=== PATIENT | female | born 1995 | race Caucasian/White ===

== ENCOUNTER 2019-06-05 16:09 | Emergency (ER) | payer OTHER ==
[~2019-06-05] VITALS: Ht 152.4 cm; Wt 67.6 kg
--- NOTE | 2019-06-05 16:12 | NUR ---
bernadette, from home, came in due to hypotension, had headache and took 1 tab of grandmother amlodipine, denies SI/HI, BP 75/38 on scene, pt awake, alert, -sob, nad noted, vss, pending md hager
[2019-06-05 16:27] LABS: BASOPHILS % (AUTO) 0.3 % (0.0-2.0); EOSINOPHILS % (AUTO) 1.5 % (0.0-6.0); HEMATOCRIT 42 % (33-45); LYMPHOCYTES # (AUTO) 1.5 /CMM (0.8-4.8); LYMPHOCYTES % (AUTO) 12.8 % (20.0-44.0); MEAN CORPUSCULAR HGB CONC 33 g/dl (31.0-36.0); MEAN CORPUSCULAR VOLUME 91 fL (82-100); MONOCYTES # (AUTO) 0.8 /CMM (0.1-1.30); MONOCYTES % (AUTO) 6.9 % (2.0-12.0); NEUTROPHILS # (AUTO) 9.3 /CMM (1.8-8.9); NEUTROPHILS % (AUTO) 78.5 % (43.0-81.0); PLATELET COUNT (AUTO) 257 /CMM (150-450); RED BLOOD CELL COUNT(AUTO) 4.63 MIL/uL (4.0-5.2); WHITE BLOOD COUNT (AUTO) 11.8 K/uL (4.3-11.0)
[2019-06-05] MEDS ORDERED: IV NS 0.9% 1,000 ML IV ONE (16:30)
--- NOTE | 2019-06-05 16:31 | NUR ---
at bedside for eval
[2019-06-05 16:56] LABS: CALCIUM, SERUM 9.2 mg/dL (8.5-10.1); CARBON DIOXIDE 25 mmol/L (21-32); CHLORIDE 99 mmol/L (98-107); CREATININE 1.1 mg/dL (0.6-1.3); GLUCOSE 95 mg/dL (74-106); SODIUM SERUM 135 mmol/L (136-145)
[2019-06-05 16:57] LABS: ACETAMINOPHEN 0 ug/ml (10-30); ALANINE AMINOTRANSFERASE 24 U/L (12-78); ALBUMIN 4.4 g/dL (3.4-5.0); ALCOHOL, BLOOD < 3 mg/dL (0-0); ALKALINE PHOSPHATASE 56 U/L (46-116); ASPARTATE AMINOTRANSFERASE 16 U/L (15-37); BILIRUBIN,TOTAL 0.6 mg/dL (0.2-1.0); SALICYLATE < 0.2 mg/dL (2.8-20.0); TOTAL PROTEIN, SERUM 7.8 g/dL (6.4-8.2)
[2019-06-05 16:59] LABS: BILIRUBIN,DIRECT 0.1 mg/dL (0.0-0.2)
[2019-06-05 17:24] LABS: APPEARANCE,URINE Slightly Cloudy (CLEAR); BILIRUBIN,URINE SMALL (NEGATIVE); BLOOD, URINE Negative Ery/uL (NEGATIVE); COLOR,URINE Dark (YELLOW); KETONES,URINE Negative (NEGATIVE); LEUKOCYTE ESTERASE ,URINE Negative (NEGATIVE); NITRITE, URINE Negative (NEGATIVE); PH,URINE 5.5 (5.0-8.0); PROTEIN,URINE 100 mg/dl (NEGATIVE); UGLUCOSE Negative (NEGATIVE); UROBILINOGEN,URINE 0.2 EU/dL (0.2)
[2019-06-05 17:39] LABS: UREA NITROGEN, BLOOD 20 mg/dL (7-18)
[2019-06-05 17:44] LABS: BACTERIA,URINE Moderate /HPF (None Seen); RBC,URINE 0-2 /HPF (0-2); SQUAMOUS EPITHELIAL CELL,UR Many /HPF (None Seen); WBC,URINE 0-2 /HPF (0-3)
[2019-06-05] MEDS ORDERED: IV NS 0.9% 1,000 ML BAG IV ONE (19:00)
[2019-06-05] MEDS ORDERED: Calcium Gluconate 0.465 MEQ/ML VIAL IV ONE ×2 (19:50→20:30)
--- NOTE | 2019-06-05 21:28 | NUR ---
[place] from poison control case closed direct# [phone]
--- NOTE | 2019-06-05 23:57 | NUR ---
Patient discharged to home in stable condition. Written and verbal after care instructions given. Patient verbalizes understanding of instruction. IV removed. Catheter intact and site benign. Pressure and 4x4 applied to site. No bleeding noted. Pt ambulated with steady gait. vss.
[2019-06-06 00:01] VITALS: BP 101/57
== END 2019-06-06 00:01 | disposition home or self-care (01) ==
LOC: ER 16:12
DX: T50.3X1A Poisoning by electrolytic, caloric and water-balance agents, accidental (unintentional), initial encounter (principal); I95.89 Other hypotension; Y92.89 Other specified places as the place of occurrence of the external cause
CPT/HCPCS: 36415; 80048; 80076; 80305; 80307; 80329; 81001; 82962; 84703; 85025; 87086; 93005; 96361; 96374; 99285; G0480; J0610; J7030; J7120; 81000-TC